=== PATIENT | female | born 1940 | race Caucasian/White ===

== ENCOUNTER 2017-06-13 05:44 | Inpatient (IN) | payer MEDICARE, OTHER ==
[~2017-06-13] VITALS: Ht 162.6 cm; Wt 70.4 kg
[2017-06-13] VITALS (26 sets, daily range): BP systolic 100–126; BP diastolic 43–79; PULSE 70–113; RESP 14–21; Ht 162.6 cm; Wt 70.4 kg
[2017-06-13 06:46] LABS: BASOPHILS % 0.4 % (0.0-2.0); EOSINOPHILS # 0.1 10^3/ul (0.0-0.5); EOSINOPHILS % 1.5 % (0.0-7.0); HEMOGLOBIN 11.6 g/dl (12.0-16.0); LYMPHOCYTES # 2.6 10^3/ul (0.8-2.9); LYMPHOCYTES % 31.1 % (15.0-51.0); MEAN CORPUSCULAR HEMOGLOBIN 28.1 pg (29.0-33.0); MEAN CORPUSCULAR HGB CONC 32.2 g/dl (32.0-37.0); MEAN CORPUSCULAR VOLUME 87.2 fl (82.0-101.0); MEAN PLATELET VOLUME 11.3 fl (7.4-10.4); MONOCYTE # 0.4 10^3/ul (0.3-0.9); MONOCYTES % 4.7 % (0.0-11.0); NEUTROPHILS % 62.1 % (39.0-77.0); PLATELET COUNT 224 10^3/UL (140-415); RED BLOOD COUNT 4.13 10^6/ul (4.20-5.40); RED CELL DISTRIBUTION WIDTH 13.4 % (11.5-14.5); WHITE BLOOD COUNT 8.2 10^3/ul (4.8-10.8)
[2017-06-13 06:59] LABS: PROTIME 13.2 Sec (12.2-14.2)
[2017-06-13 07:00] LABS: PARTIAL THROMBOPLASTIN TIME 27.2 Sec (25.0-35.0)
[2017-06-13] MEDS ORDERED: ASPIRIN 325 MG TAB ONE (07:02)
[2017-06-13] MEDS ORDERED: CLON-379 PO (07:24)
[2017-06-13] MEDS ORDERED: ISOS5TAB2 PO (07:24)
[2017-06-13] MEDS ORDERED: ATOR20TA38 PO (07:24)
[2017-06-13] MEDS ORDERED: METF1000 PO (07:24)
[2017-06-13] MEDS ORDERED: MECL-77 PO (07:24)
[2017-06-13] MEDS ORDERED: METO-429 PO (07:24)
[2017-06-13] MEDS ORDERED: LIPA1CAP45 PO (07:24)
[2017-06-13] MEDS ORDERED: GABA300C16 PO (07:24)
[2017-06-13] MEDS ORDERED: MONT10TA24 PO (07:24)
[2017-06-13] MEDS ORDERED: HEPARIN 1000 UNITS/ML 10 ML INJ ONE (07:29)
[2017-06-13] MEDS ORDERED: FENTAnyl 50 MCG/ML VIAL ONE (07:29)
[2017-06-13] MEDS ORDERED: LIDOCAINE 1% (MDV) 20 ML INJ ONE (07:29)
[2017-06-13] MEDS ORDERED: IODIXANOL LOCM 100 ML BTL ONE (07:29)
[2017-06-13] MEDS ORDERED: NITROGLYCERIN (IC) 100 MCG/ML INJ ONE (07:30)
[2017-06-13] MEDS ORDERED: MIDAZOLAM 1 MG/ML 2 ML INJ ONE (07:30)
[2017-06-13] MEDS ORDERED: VERAPAMIL 5 MG INJ ONE (07:30)
[2017-06-13 07:34] LABS: CALCIUM 9.2 mg/dl (8.4-10.2); CREATININE 0.85 mg/dl (0.44-1.00); POTASSIUM 4.1 mmol/L (3.5-5.1)
[2017-06-13] MEDS ORDERED: IBUP-1542 PO (07:58)
[2017-06-13] MEDS ORDERED: TRAM50TA2 PO (07:58)
[2017-06-13] MEDS ORDERED: LANT3I SC (07:58)
[2017-06-13] MEDS ORDERED: GLIM1TAB2 PO (07:58)
[2017-06-13] MEDS ORDERED: ACET325T38 PO (07:58)
[2017-06-13] MEDS ORDERED: OLME40TA14 PO (07:58)
[2017-06-13] MEDS ORDERED: AZIT250T6 PO (07:58)
[2017-06-13] MEDS ORDERED: ASPI1CPM8 PO (07:58)
[2017-06-13] MEDS ORDERED: TEMA30CA PO (07:58)
[2017-06-13] MEDS ORDERED: DICL50TA2 PO (07:58)
[2017-06-13] MEDS ORDERED: ESOM40CA51 PO (07:58)
[2017-06-13] MEDS ORDERED: ICOS1CAP PO (07:58)
[2017-06-13] MEDS ORDERED: MELO7.5O PO (07:58)
[2017-06-13] MEDS ORDERED: PSEU30TA38 PO (07:58)
[2017-06-13] MEDS ORDERED: UMEC62.5 IH (07:58)
[2017-06-13] MEDS ORDERED: CHOL500051 PO (07:58)
[2017-06-13] MEDS ORDERED: LEVO100T87 PO ×2 (07:58)
[2017-06-13] MEDS ORDERED: ALBU18HF INHALATION (07:58)
[2017-06-13] MEDS ORDERED: VIGA RIGHT EYE (07:58)
[2017-06-13] MEDS ORDERED: SOD CHLORIDE 0.9% 500 ML ONE (08:00)
[2017-06-13] MEDS ORDERED: BIVALIRUDIN 250MG /NS 50 ML 50 ML IVPB ONE ×2 (08:00→08:55)
[2017-06-13] MEDS ORDERED: CLOPIDOGREL 300 MG TAB ONE (08:00)
[2017-06-13] MEDS ORDERED: FUROSEMIDE 40 MG INJ ONE (08:49)
[2017-06-13] MEDS ORDERED: ONDANSETRON 4 MG INJ ONE (09:26)
[2017-06-13] MEDS ORDERED: ALBUTEROL/IPRATROPIUM (NEB) 3 ML AMP HHN STA (09:39)
[2017-06-13] MEDS ORDERED: ACETAMINOPHEN 325 MG TAB PO PRN (10:00)
[2017-06-13] MEDS ORDERED: ONDANSETRON 4 MG INJ IV PRN (10:00)
--- NOTE | 2017-06-13 10:06 | OPR ---
Date/Time of Note Date/Time of Note DATE: 06/13/17 TIME: 09:42 Operative Report Free Text/Dictation Procedure Date: 06/13/2017 Procedures Performed: 1)Left heart catheterization with selective left and right coronary angiography. 2)Balloon angioplasty of the LAD Pre-operative Diagnosis: CAD, cardiomyopathy (EF 40%) Post-operative Diagnosis:same Indications:76 yo F with a h/o new onset cardiomyopathy (EF ~40%), LV thrombus, CAD (based on echo findings), CVA without residual, DM, HTN, active smoker, who was found to have new onset cardiomyopathy and chest pain. Cardiac cath for evaluation. Description of Procedure: After informed consent, the patient was brought to the cardiac catheterization lab. The procedure site was prepped and draped in usual manner. The patient was premedicated with versed 1 mg and fentanyl 25 mcg. 2mL lidocaine was injected into the right wrist. Next using the posterior wall technique, the 6/ 5 chinese sheath was inserted into the right radial artery. Next using the JL3.5 and JR4, selective angiography of the left and right coronary arteries were obtained. The pigtail was not advanced into the ventricle due to known LV thrombus. The decision was made to proceed with PCI of the LAD due to pt's symptoms, low EF and hypokinetic (not akinetic) anterior wall on echo. A guide was advanced and engaged into the left coronary artery. After appropriate anticoagulation and antiplatelets were given, the PT2 light support angioplasty wire was advanced past the lesion. Next the proximal lesion was dilated with a 2.0 X 12 balloon with KAREN 1 flolw established. The wire was in the correct location. The mid lesion was thought to be the reason for the poor flow but multiple balloons including a 1.5 x 8, 1.2 x8, and OTW carton making machine operator 1.2 balloon would not cross. Eventually the PT2 LS was exchanged for a Mailman using the Automotive Shop Foreman OTW balloon and the lesion was dilated. Flow could not be established and the pt was starting to have desaturations/respiratory distress so the decision was made to stop the procedure. After the wire was removed however, final angiography revealed KAREN 3 flow and a diffusely disease LAD. Next all equipment was removed and hemostasis was achieved by TR band. Findings: Anatomy/Hemodynamics: Left main: normal LAD: prox subtotal occlusion with very faint antegrade flow and mostly retrograde collaterals from the RCA Circumflex: luminal irregularities Obtuse marginal:luminal irregularities RCA:diffuse 30-40% disease with focal 70% mid PDA:mild plaquing PLV:mild plaquing LV not entered due to LV thrombus Contrast used: 165 mL Fluoroscopy time: 30.3 min Medications used: Versed 1.5 Fentanyl 50 Angiomax bolus plus drip ASA 325mg plavix 600mg Equipment used: 6 chinese EBU 3.5 guide PT 2 LS and Mailman angioplasty wire 2 x 12, 1.5 x 8, 1.2 x 8, carton making machine operator OTW 1.2 No stents deployed Assessment: Angina/CAD: Attempted PCI of LAD with establishment of KAREN 3 flow but diffuse disease. Will need to discuss with cardiac surgery for options (CABG vs repeat PCI) Cardiomyopathy: EF 40% LV thrombus DM CVA Tobacco use Plan: -admit to ICU -surgical eval -ASA -hold plavix until decision is made regarding surgery -hold Xarelto -coreg 6.25mg DIEUDONNE BANDA Jun 13, 2017 10:06
--- NOTE | 2017-06-13 10:07 | CONS ---
Date/Time of Note Date/Time of Note DATE: 06/13/17 TIME: 10:06 Assessment/Plan Assessment/Plan Chief Complaint/Hosp Course Acute respiratory distress: Combination of mild CHF and COPD. Angina/CAD: Attempted PCI of LAD with establishment of KAREN 3 flow but diffuse disease. Will need to discuss with cardiac surgery for options (CABG vs repeat PCI) Cardiomyopathy: EF 40% LV thrombus: repeat echo DM CVA Tobacco use Plan: -admit to ICU -surgical eval to decide -ASA -hold plavix until decision is made regarding surgery -hold Xarelto -coreg 6.25mg -lasix given in cardiac catheterization technologist Problems: Consultation Date/Type/Reason Admit Date/Time Date of Consultation: Jun 13, 2017 Type of Consultation: Cardiology Reason for Consultation CAD Referring Provider: USHA ANDERSON DO Hx of Present Illness 76 yo F with a h/o new onset cardiomyopathy (EF ~40%), LV thrombus, CAD (based on echo findings), CVA without residual, DM, HTN, active smoker, who was found to have new onset cardiomyopathy and chest pain. Cardiac cath showed occluded LAD which was partially revascularized but unable to achieve optimal results and no stenting done at this time. Pt developed respiratory distress so the procedure was stopped. per HPI, otherwise negative Past Medical History per HPI Social History Smoking Status: Current every day smoker Exam/Review of Systems Vital Signs Vitals Vital Signs Date Time Temp Pulse Resp B/P Pulse Ox O2 Delivery O2 Flow Rate FiO2 06/13/17 06:31 97.6 85 20 117/64 99 Room Air Exam Constitutional: alert, oriented Psych: nl mood/affect Head: atraumatic, normocephalic Neck: No jvd Respiratory: crackles/rales, diminished breath sounds, wheezing, No clear to auscultation (mild crackles, + ronchi) Cardiovascular: regular rate and rhythm, No edema, No systolic murmur Gastrointestinal: non-tender, soft Neurological: nl mental status, nl speech Results Result Diagram: 06/13/17 0640 06/13/17 0640 Results 24 hrs Laboratory Tests Test 06/13/17 06:40 White Blood Count 8.2 Red Blood Count 4.13 L Hemoglobin 11.6 L Hematocrit 36.0 L Mean Corpuscular Volume 87.2 Mean Corpuscular Hemoglobin 28.1 L Mean Corpuscular Hemoglobin Concent 32.2 Red Cell Distribution Width 13.4 Platelet Count 224 Mean Platelet Volume 11.3 H Neutrophils % 62.1 Lymphocytes % 31.1 Monocytes % 4.7 Eosinophils % 1.5 Basophils % 0.4 Nucleated Red Blood Cells % 0.0 Neutrophils # (Manual) 5.1 Lymphocytes # 2.6 Monocytes # 0.4 Eosinophils # 0.1 Basophils # 0.0 Nucleated Red Blood Cells # 0.0 Prothrombin Time 13.2 Prothrombin Time Ratio 1.0 INR International Normalized Ratio 1.00 Activated Partial Thromboplast Time 27.2 Sodium Level 150 H Potassium Level 4.1 Chloride Level 112 H Carbon Dioxide Level 23 Anion Gap 19 H Blood Urea Nitrogen 17 Creatinine 0.85 Glucose Level 101 Calcium Level 9.2 DIEUDONNE BANDA Jun 13, 2017 10:07
--- NOTE | 2017-06-13 11:00 | RADRPT ---
PROCEDURE: XR Chest 1 View. CLINICAL INDICATION: Chest pain, status post heart catheterization. TECHNIQUE: AP view of the chest was obtained. COMPARISON: None. FINDINGS: The heart size is within normal limits. Calcified atherosclerosis is seen in the aorta. Elevated r ight hemidiaphragm is identified. Atelectasis is noted at the left lung base. Diffuse mild interst itial prominence is seen in both lungs. No consolidations are identified. No pneumothorax is seen. Osseous structures are intact. IMPRESSION: Calcified atherosclerosis in the aorta. Elevated right hemidiaphragm. Diffuse mild interstitial prominence in both lungs. Interstitial prominence could be chronic. Atelectasis at the left lung base. RPTAT: AA .Emre Hatch MD, MD Date Time Electronically viewed and signed by .Emre Hatch MD, on 06/13/2017 10:21 .P/
[2017-06-13] MEDS ORDERED: morphine 2 MG INJ ONE (11:09)
[2017-06-13] MEDS ORDERED: morphine 2 MG INJ IV ONE (11:30)
[2017-06-13] MEDS ORDERED: ALBUTEROL/IPRATROPIUM (NEB) 3 ML AMP HHN PRN (12:30)
--- NOTE | 2017-06-13 13:23 | RADRPT ---
Vent Rate: 80 bpm RR Interval: 0 msec KS Interval: 158 msec QRS Duration: 72 msec QT Interval: 376 msec QTC Interval: 433 msec P-R-T Surprise: 76 - 70 - 51 degrees Normal sinus rhythm Biatrial enlargement Anteroseptal infarct , age undetermined Abnormal ECG Electronically Signed By: Cesario Shafer [id number]
[2017-06-13] MEDS ORDERED: CEFAZOLIN 2 GM/50 ML (PMX) 50 ML IVPB ONE (13:30)
--- NOTE | 2017-06-13 13:30 | CONS ---
Date/Time of Note Date/Time of Note DATE: 06/13/17 TIME: 13:23 Assessment/Plan Assessment/Plan Additional Assessment/Plan 76 year old female with ischemic cardiomyopathy and 2 vessel CAD with LV thrombus who will need CABG. I will check carotid and bedside spirometry. I explained to patient and sister the benefits, risks and alternatives of surgery. I explained via a nurse who translated the risks are but not limited to bleeding, infection, stroke, [place], renal and respiratory failure and . They understand and consent. Will schedule for Sunday. Consultation Date/Type/Reason Admit Date/Time Date of Consultation: Jun 13, 2017 Reason for Consultation evaluate for CABG Hx of Present Illness 76 year old smoker who has been complaining of SBO and chest pressure had a positive stress test with anterior wall ischemia. Echo shows apical hypokinesis as well as an LV thrombus. Cath today showed an occluded LAD and 80% mid RCA lesion. We are asked to see regarding CABG Constitutional: No chills, No diaphoresis, No disoriented, No febrile, No improved, No no complaints, No other, No poor po, No requiring IVF, No requiring O2 Eyes: No discharge, No no complaints, No other, No pain, No redness, No visual change ENT: No bleeding, No congestion, No discharge, No dysphagia, No no complaints, No other, No pain, No sore throat Respiratory: shortness of breath Cardiovascular: chest pain Gastrointestinal: No blood, No constipation, No decreased appetite, No diarrhea , No flatus, No nausea, No no complaints, No other, No pain, No passing stool, No vomiting Genitourinary: No bleeding, No discharge, No dysuria, No flank pain, No hematuria, No no complaints, No other Musculoskeletal: No back pain, No bone/joint pain, No neck pain, No no complaints, No other, No restricted range of motion, No swelling Skin: No bruising, No erythema, No laceration, No no complaints, No other, No pruritis, No rash, No skin lesions Neurologic: No confusion, No dizziness, No focal-weakness, No headache, No no complaints, No other, No seizure, No syncope Endocrine: No dry skin, No no complaints, No other, No polydypsia, No polyuria , No temp intolerance Lymphatic: No adenopathy, No lymphadema, No no complaints, No other, No tender nodes Psychological: No anxiety, No confusion, No depression, No nl mood/affect, No no complaints, No other, No suicidal Immunologic: No immunodeficiency, No no complaints, No other, No pruritis, No rhinitis, No urticaria Past Medical History Medical History: cancer, coronary artery disease, hypertension Past Surgical History hysterectomy Family History Significant Family History: no pertinent family hx Social History Alcohol Use: none Smoking Status: Current every day smoker Drug Use: none Exam/Review of Systems Vital Signs Vitals Vital Signs Date Time Temp Pulse Resp B/P Pulse Ox O2 Delivery O2 Flow Rate FiO2 06/13/17 12:47 Nasal Cannula 2.0 06/13/17 12:00 97.7 83 14 110/43 94 Exam Constitutional: No alert, No distress, No frail, No non-verbal, No obese, No oriented, No other, No well developed Psych: No anxiety, No confusion, No depression, No nl mood/affect, No no complaints, No other, No suicidal Head: No atraumatic, No hematomas, No lacerations, No normocephalic, No other Eyes: No EOMI, No PERRL, No fundi, disc, No icteric, No nl conjunctiva, No nl lids, No nl sclera, No other ENMT: No intubated, No mucosa pink and moist, No nl external ears & nose, No nl lips & teeth, No nl nasal mucosa & septum, No other, No tympanic membranes Neck: No bruits, No jvd, No masses, No non-tender, No nuchal rigidity, No other , No supple, No thyromegaly Respiratory: No clear to auscultation, No congested cough, No crackles/rales, No diminished breath sounds, No intercostal retraction, No labored breathing, No normal air movement, No other, No respirations, No tactile fremitus, No wheezing Cardiovascular: No S3, No S4, No bruits, No diastolic murmur, No edema, No gallop, No irregular rhythm, No jugular venous distention (JVD), No murmurs/ extra sounds, No nl pulses, No other, No regular rate and rhythm, No rub, No systolic murmur Gastrointestinal: No ascites, No bowel sounds, No distended, No firm, No hepatomegaly, No mass, No nl liver, spleen, No non-tender, No other, No rebound or guarding, No soft, No splenomegaly, No surgical scars, No tender Genitourinary - Female: No CMT, No CVA tenderness, No nl adnexae, No nl external genitalia, No other, No uterus Musculoskeletal: No joint tenderness, No muscle tone, No muscle weakness, No nl extremities to inspection, No nl gait and stance, No other, No range of motion, No spine non-tender, No swelling Extremities: No calf tenderness, No clubbing, No cyanosis, No edema, No normal pulses, No other, No palpable cord, No pitting pedal edema, No tenderness Neurological: No PLATE CONDITIONER II-XII intact, No DTR's symmetric, No confused, No focal weakness, No lethargic, No nl mental status, No nl speech, No nl strength, No numbness, No other, No reflexes, No unresponsive Skin: No diaphoresis, No ecchymosis, No laceration, No nl turgor, No other, No puncture, No rash or lesions Lymph: No enlarged, No nl lymph nodes, No nontender, No other Results Result Diagram: 06/13/17 0640 06/13/17 0640 Results 24 hrs Laboratory Tests Test 06/13/17 06:40 White Blood Count 8.2 Red Blood Count 4.13 L Hemoglobin 11.6 L Hematocrit 36.0 L Mean Corpuscular Volume 87.2 Mean Corpuscular Hemoglobin 28.1 L Mean Corpuscular Hemoglobin Concent 32.2 Red Cell Distribution Width 13.4 Platelet Count 224 Mean Platelet Volume 11.3 H Neutrophils % 62.1 Lymphocytes % 31.1 Monocytes % 4.7 Eosinophils % 1.5 Basophils % 0.4 Nucleated Red Blood Cells % 0.0 Neutrophils # (Manual) 5.1 Lymphocytes # 2.6 Monocytes # 0.4 Eosinophils # 0.1 Basophils # 0.0 Nucleated Red Blood Cells # 0.0 Prothrombin Time 13.2 Prothrombin Time Ratio 1.0 INR International Normalized Ratio 1.00 Activated Partial Thromboplast Time 27.2 Sodium Level 150 H Potassium Level 4.1 Chloride Level 112 H Carbon Dioxide Level 23 Anion Gap 19 H Blood Urea Nitrogen 17 Creatinine 0.85 Glucose Level 101 Calcium Level 9.2 Medications Medications Current Medications Acetaminophen (Tylenol Tab) 650 mg Q4H PRN PO NON-CARDIAC PAIN LEVEL (1-3); Start 06/13/17 at 10:00 Ondansetron HCl 4 mg 4 mg Q4H PRN IV NAUSEA AND/OR VOMITING; Start 06/13/17 at 10:00 Cefazolin Sodium/ Dextrose (Ancef 2 Gm/50 ml (Pmx)) 50 ml @ 100 mls/hr PRE-OP ONCE IVPB ; Start 06/13/17 at 13:30; Stop 06/13/17 at 13:59 AJAY MULLINS MD Jun 13, 2017 13:30
--- NOTE | 2017-06-13 14:40 | RADRPT ---
AMENDMENT: 06/13/2017 3:42:39 PM Kaleb Norris M.D Results were discussed with Mckenna Obando) at 06/13/2017 3:42:36 PM PROCEDURE: US Carotids. CLINICAL INDICATION: Syncope. Preoperative exam for CABG. TECHNIQUE: Multiple sonographic of the carotid bifurcation region and vertebral arteries were obta ined utilizing bolanos scale, duplex and color-flow imaging. The images were reviewed on a PACS worksta tion. COMPARISON: No prior studies are available for comparison. FINDINGS: Evaluation of the right carotid bifurcation region reveals mild to moderate calcific atherosclerotic disease. The left internal carotid artery is occluded at the midportion. Minimal flow in the proximal left i nternal carotid artery is seen. There is antegrade flow within the vertebral arteries bilaterally. RIGHT CAROTID MEASUREMENTS: Common Carotid Onladh57.9 (cm/sec) Internal Carotid Artery - vlrdhdwa64.8 (cm/sec) Internal Carotid Artery - mhc054.5 (cm/sec) Internal Carotid Artery - bugemj53.3 (cm/sec) Internal Carotid/Common Carotid1.5 LEFT CAROTID MEASUREMENTS: Common Carotid Rfdmxs08.4 (cm/sec) Internal Carotid Artery - proximal0 (cm/sec) Internal Carotid Artery - mid0 (cm/sec) Internal Carotid Artery - distal0 (cm/sec) Internal Carotid/Common Carotid0 IMPRESSION: 1. Occlusion of the left internal carotid artery in the midportion. 2. No hemodynamically significant stenosis in the right carotid bifurcation and internal carotid ar jacob. RPTAT: HPNM Physician Neva Date Time Electronically viewed and signed by Physician Neva on 06/13/2017 15:42 /
[2017-06-13 14:58] LABS: BASOPHILS % 0.2 % (0.0-2.0); EOSINOPHILS % 0.3 % (0.0-7.0); HEMATOCRIT 37.3 % (37.0-47.0); HEMOGLOBIN 11.9 g/dl (12.0-16.0); LYMPHOCYTES # 1.5 10^3/ul (0.8-2.9); LYMPHOCYTES % 15.7 % (15.0-51.0); MEAN CORPUSCULAR HEMOGLOBIN 27.7 pg (29.0-33.0); MEAN CORPUSCULAR HGB CONC 31.9 g/dl (32.0-37.0); MEAN CORPUSCULAR VOLUME 86.7 fl (82.0-101.0); MEAN PLATELET VOLUME 11.6 fl (7.4-10.4); MONOCYTE # 0.3 10^3/ul (0.3-0.9); MONOCYTES % 3.1 % (0.0-11.0); NEUTROPHILS % 80.4 % (39.0-77.0); PLATELET COUNT 219 10^3/UL (140-415); RED CELL DISTRIBUTION WIDTH 13.7 % (11.5-14.5); WHITE BLOOD COUNT 9.8 10^3/ul (4.8-10.8)
[2017-06-13] MEDS ORDERED: MECLIZINE 25 MG TAB PO PRN (16:30)
[2017-06-13] MEDS ORDERED: PSEUDOEPHEDRINE 30 MG TAB PO PRN (16:30)
[2017-06-13] MEDS ORDERED: traMADol 50 MG TAB PO PRN (16:30)
[2017-06-13] MEDS: ALBUTEROL 18 GM INHALER INH SCH ×2 (16:30→20:00)
[2017-06-13] MEDS ORDERED: GLUCOSE GEL 15 GRAM TUBE PO PRN ×2 (17:00)
[2017-06-13] MEDS ORDERED: DEXTROSE 50% 50 ML SYRINGE IV PRN ×2 (17:00)
[2017-06-13] MEDS ORDERED: GLUCAGON 1 MG INJ IM PRN (17:00)
[2017-06-13] MEDS ORDERED: GLUCOSE GEL 15 GRAM TUBE BUCCAL PRN (17:00)
[2017-06-13] MEDS ORDERED: metFORMIN 500 MG TAB PO SCH (17:35)
[2017-06-13] MEDS: INSULIN ASPART [NOVOLOG] 3 ML PEN SC SCH ×2 (17:35→21:00)
[2017-06-13] MEDS: GLIMEPIRIDE 2 MG TAB PO SCH (17:59)
--- NOTE | 2017-06-13 19:04 | HP ---
DATE OF ADMISSION: 06/13/2017 CHIEF COMPLAINT: Chest pain. HISTORY OF PRESENT ILLNESS: This is a 76-year-old female with new onset of cardiomyopathy, ejection fraction 40 percent, history of left ventricular thrombus, coronary artery disease, history of CVA without residual deficit, hypertension, diabetes, smoker, who was found to have new onset cardiomyopathy and chest pain. The patient's cardiac cath showed occluded LAD that was able to be partially revascularized, but no optimal result and no stenting was done. The patient was, therefore, transferred to the intensive care unit for evaluation possibly of CABG. Upon my evaluation, patient at this time is currently stable. Denies any fevers, chills, nausea, vomiting. PAST MEDICAL HISTORY: History of coronary artery disease, angina, cardiomyopathy, diabetes, prior CVA. PAST SURGICAL HISTORY: None. ALLERGIES: NONE. SOCIAL HISTORY: Positive for smoking. MEDICATIONS: Reviewed and reconciled. REVIEW OF SYSTEMS: Fourteen point review of systems conducted. Pertinent positives in HPI, otherwise negative. PHYSICAL EXAMINATION: VITAL SIGNS: BP is 114/54, respirations 18, pulse 97, temp 98.6. HEENT: Head is normocephalic. NECK: Supple. HEART: Regular rate. LUNGS: Diminished breath sounds at the base. ABDOMEN: Soft, nontender to palpation. No rebound or guarding. EXTREMITIES: Negative for clubbing, cyanosis. No edema. DERMATOLOGIC: Clean. No rashes. MUSCULOSKELETAL: No joint effusion. NEUROLOGIC: No change in exam. LABORATORY DATA: White count 9.8, hemoglobin 9.9, hematocrit 27.3, platelet count 319. Sodium 150, potassium 4.1, BUN 19, creatinine 0.85. ASSESSMENT AND PLAN: This is a 76-year-old female who presents with: 1. Cardiomyopathy, coronary artery disease. The patient is status post cardiac cath with percutaneous coronary intervention to the left anterior descending. The patient has multivessel disease. A CT surgery consult was placed with Dr. Obando for evaluation. 2. Acute respiratory distress. The etiology is likely secondary to congestive heart failure and chronic obstructive pulmonary disease. Plan is to give the patient nebulizers p.r.n. Will place a pulmonary consult for evaluation. Monitor closely. 3. Hypernatremia. Patient has a free water deficit of approximately 1 liter. Will encourage free water intake. 4. Diabetes. Continue Accu-Chek and sliding scale. 5. History of cerebrovascular accident. Continue medical management. 6. Continued tobacco abuse. 7. Left ventricular thrombus. Continue medical management. Follow up repeat echo. 8. Gastrointestinal and deep venous thrombosis prophylaxis. Continue PPI and sequential compression devices. Dictated By: Chad Apodaca DO /armen/humberto /Document#: [id number]
[2017-06-13 19:56] LABS: CALCIUM 9.4 mg/dl (8.4-10.2); CREATININE 0.85 mg/dl (0.44-1.00); POTASSIUM 4.1 mmol/L (3.5-5.1)
[2017-06-13] MEDS: DIPYRIDAMOLE/ASPIRIN (SR) CAP PO SCH (21:16)
[2017-06-13] MEDS: MOXIFLOXACIN 0.5% 3 ML OPH RIGHT EYE SCH (21:16)
[2017-06-13] MEDS: ISOSORBIDE DINITRATE 5 MG TAB PO SCH (21:17)
[2017-06-13] MEDS: morphine 2 MG INJ IV PRN (21:18)
[2017-06-13] MEDS: METOPROLOL 50 MG TAB PO SCH (21:18)
[2017-06-13] MEDS: ATORVASTATIN 20 MG TAB PO SCH (21:18)
[2017-06-13] MEDS: GABAPENTIN 300 MG CAP PO SCH (21:18)
[2017-06-14] VITALS (22 sets, daily range): BP systolic 55–129; BP diastolic 36–70; PULSE 75–92; RESP 14–26
[2017-06-14] MEDS: ALBUTEROL 18 GM INHALER INH SCH ×4 (01:30→20:00)
[2017-06-14] MEDS: ACCU-CHEK XX SCH (01:30)
[2017-06-14] MEDS: GLIMEPIRIDE 2 MG TAB PO SCH ×2 (08:42→18:20)
[2017-06-14] MEDS: ISOSORBIDE DINITRATE 5 MG TAB PO SCH ×3 (08:44→21:48)
[2017-06-14] MEDS: MONTELUKAST 10 MG TAB PO SCH (08:45)
[2017-06-14] MEDS: METOPROLOL 50 MG TAB PO SCH (08:45)
[2017-06-14] MEDS: AZITHROMYCIN 250 MG TAB PO SCH (08:46)
[2017-06-14] MEDS: MOXIFLOXACIN 0.5% 3 ML OPH RIGHT EYE SCH ×3 (08:48→21:48)
[2017-06-14] MEDS: INSULIN ASPART [NOVOLOG] 3 ML PEN SC SCH ×4 (08:48→21:00)
[2017-06-14] MEDS: DIPYRIDAMOLE/ASPIRIN (SR) CAP PO SCH ×2 (08:51→21:47)
[2017-06-14] MEDS ORDERED: IODIXANOL LOCM 100 ML BTL ONE (09:26)
[2017-06-14] MEDS ORDERED: SOD CHLORIDE 0.9% 100 ML ONE (09:26)
--- NOTE | 2017-06-14 10:02 | RADRPT ---
Echocardiogram Report Patient Name: MEI VALLES Gender: Female Date: 1940 Study Date: 13-Jun-2017 Marketing Project Manager: Marlon Restrepo RDCS Location: 106 Ref. Physician: AJAY MULLINS Quality: Adequate Procedures: Transthoracic echocardiogram with complete 2D, M-Mode, and doppler examination. Indications: LV Thrombus. 2D/M Mode Doppler Measurement Value Normal Ranges Measurement Value Normal Ranges LVIDd 2D 5.2 3.5 - 5.6 cm AV Peak Xander 1.6 m/sec LVIDs 2D 3.1 2.1 - 4.1 cm AV Peak PG 10.1 mmHg LVPWd 2D 0.9 0.6 - 1.1 cm LVOT Peak Xander 0.8 m/sec IVSd 2D 1.0 0.6 - 1.1 cm LVOT Peak PG 2.5 mmHg AoR Diam 2D 2.8 2.0 - 3.7 cm MV E Peak Xander 0.8 m/sec EDV 2D 129.4 cm3 MV A Peak Xander 1.1 m/sec ESV 2D 30.3 cm3 MV E/A 0.7 LA Dimen 2D 2.9 2.3 - 4.0 cm MV Decel Time 102 msec MV Decel [place] 7 MV E/A 0.7 TR Peak Xander 2.7 m/sec TR Peak PG 28.4 mmHg RVSP 31.0 mmHg Findings Left Ventricle: Normal left ventricular cavity size. Normal left ventricular wall thickness. Moderate left ventricular systolic dysfunction. Ejection fraction is visually estimated at 40 %. Tissue Doppler/Mitral Doppler indices are consistent with impaired relaxation (Stage I diastolic dysfunction). The previously seen apical thrombus (on outpatient echo) is not well characterized here but cannot be ruled out. Definity (contrast) study would be useful for evaluation but is not available. Resting Segmental Wall Motion Analysis: Dyskinesis/aneurysm of the apex. hypokinesis of the distal septum and anterior wall. Right Ventricle: Normal right ventricular size. Normal right ventricular systolic function. Left Atrium: There is mild enlargement of left atrium. Right Atrium: The right atrium is normal in size. Mitral Valve: Mitral valve leaflets appear mildly thickened. Mild mitral annular calcification. Mild mitral valve regurgitation. Aortic Valve: No significant aortic stenosis or insufficiency. Aortic cusps appear mildly calcified. Tricuspid Valve: Normal appearance of the tricuspid valve. Estimated peak PA systolic pressure 31 mmHg. There is trace tricuspid regurgitation. Pulmonic Valve: Normal pulmonic valve appearance. Pericardium: Normal pericardium with no significant pericardial effusion. Aorta: Normal aortic root. IVC: Normal size and normal respiratory collapse consistent with normal right atrial pressure. Conclusions 1.Normal left ventricular cavity size. Normal left ventricular wall thickness. Moderate left ventricular systolic dysfunction. Ejection fraction is visually estimated at 40 %. Tissue Doppler/Mitral Doppler indices are consistent with impaired relaxation (Stage I diastolic dysfunction). 2.The previously seen apical thrombus (on outpatient echo) is not well characterized here but cannot be ruled out. Definity (contrast) study would be useful for evaluation but is not available. 3.Dyskinesis/aneurysm of the apex. Hypokinesis of the distal septum and anterior wall. 4.Mild mitral valve regurgitation. 5.Estimated peak PA systolic pressure 31 mmHg based on RA pressure of 3 mmHg. Electronically Signed By: Jarrod George 14-Jun-2017 10:01:12 -0900 Patient Name: MEI VALLES Study Date: 13-Jun-2017 [id number]
--- NOTE | 2017-06-14 10:19 | CONS ---
Date/Time of Note Date/Time of Note DATE: 06/14/17 TIME: 10:09 Assessment/Plan Assessment/Plan Chief Complaint/Hosp Course Acute respiratory distress: From sedation and severe COPD. Now resolved Angina/CAD: Attempted PCI of LAD with establishment of KAREN 3 flow but diffuse disease. Plan for CABG. If risk is too high, PCI is still an option but would likely require stenting of most of LAD Cardiomyopathy: EF 40% LV thrombus: seen on echo in clinic one week prior. Not seen well on echo here DM CVA PVD: left carotid occlusion, chronic Severe COPD Tobacco use -CABG tomorrow am -if CABG is delayed, start heparin for LV thrombus, otherwise assisted can take Xarelto for ~3 months unless removed during surgery -ASA (aggrenox ok for now) -lipitor -hold plavix -hold Xarelto -coreg 6.25mg -d/c metformin as will have another contrast study today -change clonidine to PRN Problems: Consultation Date/Type/Reason Admit Date/Time Jun 13, 2017 at 19:48 Initial Consult Date 06/13/17 Type of Consultation: Cardiology Referring Provider: USHA ANDERSON DO 24 HR Interval Summary Free Text/Dictation Evaluated by Dr. Obando and plan is for CABG. Spirometry shows severe COPD Ultrasound shows occluded left carotid which is chronic per pt No SOB or chest pain today Exam/Review of Systems Vital Signs Vitals Vital Signs Date Time Temp Pulse Resp B/P Pulse Ox O2 Delivery O2 Flow Rate FiO2 06/14/17 10:00 81 19 103/59 98 Nasal Cannula 2.0 06/14/17 08:00 97.6 06/14/17 02:22 27 Intake and Output 06/13/17 06/13/17 06/14/17 15:00 23:00 07:00 Intake Total 340 ml 230 ml 20 ml Output Total 630 ml 690 ml 270 ml Balance -290 ml -460 ml -250 ml Exam Constitutional: alert, oriented Psych: no complaints Head: atraumatic, normocephalic Neck: No jvd Respiratory: No clear to auscultation (mild ronchi) Cardiovascular: regular rate and rhythm, No edema, No systolic murmur Gastrointestinal: non-tender, soft, No distended Neurological: nl mental status, nl speech Results Result Diagram: 06/13/17 1436 06/13/17 1920 Results 24 hrs Laboratory Tests Test 06/13/17 14:36 06/13/17 17:50 06/13/17 19:20 06/13/17 21:25 White Blood Count 9.8 Red Blood Count 4.30 Hemoglobin 11.9 L Hematocrit 37.3 Mean Corpuscular Volume 86.7 Mean Corpuscular Hemoglobin 27.7 L Mean Corpuscular Hemoglobin Concent 31.9 L Red Cell Distribution Width 13.7 Platelet Count 219 Mean Platelet Volume 11.6 H Neutrophils % 80.4 H Lymphocytes % 15.7 Monocytes % 3.1 Eosinophils % 0.3 Basophils % 0.2 Nucleated Red Blood Cells % 0.0 Neutrophils # (Manual) 7.9 H Lymphocytes # 1.5 Monocytes # 0.3 Eosinophils # 0.0 Basophils # 0.0 Nucleated Red Blood Cells # 0.0 Bedside Glucose 105 170 Sodium Level 143 Potassium Level 4.1 Chloride Level 103 Carbon Dioxide Level 24 Anion Gap 20 H Blood Urea Nitrogen 16 Creatinine 0.85 Glucose Level 181 Calcium Level 9.4 Test 06/14/17 01:27 06/14/17 08:13 Bedside Glucose 134 139 Medications Medications Current Medications Acetaminophen (Tylenol Tab) 650 mg Q4H PRN PO NON-CARDIAC PAIN LEVEL (1-3); Start 06/13/17 at 10:00 Ondansetron HCl 4 mg 4 mg Q4H PRN IV NAUSEA AND/OR VOMITING; Start 06/13/17 at 10:00 Cefazolin Sodium/ Dextrose (Ancef 2 Gm/50 ml (Pmx)) 50 ml @ 100 mls/hr ONCE ONCE IVPB ; Start 06/15/17 at 04:30; Stop 06/15/17 at 04:59 Dipyridamole/ Aspirin (Aggrenox) 1 cap BID PO Last administered on 06/14/17 08 :51; Admin Dose 1 CAP; Start 06/13/17 at 21:00 Atorvastatin Calcium (Lipitor) 20 mg QHS PO Last administered on 06/13/17 21: 18; Admin Dose 20 MG; Start 06/13/17 at 21:00 Azithromycin (Zithromax) 250 mg DAILY PO Last administered on 06/14/17 08:46; Admin Dose 250 MG; Start 06/14/17 at 09:00 Clonidine (Catapres) 0.1 mg Q8 PO Last administered on 06/14/17 05:04; Admin Dose 0.1 MG; Start 06/13/17 at 22:00 Gabapentin (Neurontin) 300 mg QHS PO Last administered on 06/13/17 21:18; Admin Dose 300 MG; Start 06/13/17 at 21:00 Isosorbide Dinitrate (Isordil) 5 mg TID PO Last administered on 06/14/17 08:44 ; Admin Dose 5 MG; Start 06/13/17 at 21:00 Meclizine HCl (Antivert) 25 mg Q8H PRN PO DIZZINESS Last administered on 21:17; Admin Dose 25 MG; Start 06/13/17 at 16:30 Montelukast Sodium (Singulair) 10 mg DAILY PO Last administered on 06/14/17 08 :45; Admin Dose 10 MG; Start 06/14/17 at 09:00 Moxifloxacin HCl (Vigamox) 1 drop TID RIGHT EYE Last administered on 06/13/17 21:16; Admin Dose 1 DROP; Start 06/13/17 at 21:00 Pseudoephedrine HCl (Sudogest) 30 mg Q6 PRN PO CONGESTION; Start 06/13/17 at 16 :30 Tramadol HCl (Ultram) 50 mg Q6 PRN PO PAIN; Start 06/13/17 at 16:30 Diagnostic Test (Pha) (Accu-Chek) 1 ea 02 XX Last administered on 06/14/17 01: 30; Admin Dose 1 EA; Start 06/14/17 at 02:00 Miscellaneous Information 1 ea NOTE XX ; Start 06/13/17 at 17:00 Glucose (Glutose) 15 gm Q15M PRN PO DECREASED GLUCOSE; Start 06/13/17 at 17:00 Glucose (Glutose) 22.5 gm Q15M PRN PO DECREASED GLUCOSE; Start 06/13/17 at 17: 00 Dextrose (D50w Syringe) 25 ml Q15M PRN IV DECREASED GLUCOSE; Start 06/13/17 at 17:00 Dextrose (D50w Syringe) 50 ml Q15M PRN IV DECREASED GLUCOSE; Start 06/13/17 at 17:00 Glucagon (Glucagen) 1 mg Q15M PRN IM DECREASED GLUCOSE; Start 06/13/17 at 17:00 Glucose (Glutose) 15 gm Q15M PRN BUCCAL DECREASED GLUCOSE; Start 06/13/17 at 17 :00 Morphine Sulfate (morphine) 2 mg Q4H PRN IV PAIN LEVEL 4-6 Last administered on 06/13/17t 21:18; Admin Dose 2 MG; Start 06/13/17 at 18:00 Carvedilol (Coreg) 6.25 mg BID PO ; Start 06/14/17 at 21:00 DIEUDONNE BANDA Jun 14, 2017 10:19
--- NOTE | 2017-06-14 10:53 | RADRPT ---
PROCEDURE: CTA Neck. CLINICAL INDICATION: Carotid stenosis TECHNIQUE: The study was performed utilizing a multidetector CT scanner. Thin cut axial sections w ere obtained through the neck with the use of 100 cc of Isovue 370 nonionic intravenous contrast mat erial. Coronal and sagittal maximal intensity projection reformations were obtained. Additional 3D volumetric renderings were created. The images were reviewed on a PACS workstation. The total CTDI vol is 70/21 mGy and the DLP is 631 mGy-cm. One or more of the following dose reduction techniques w ere used: Automated exposure control, Adjustment of the mA and/or kV according to patient size, and/ or use of iterative reconstruction technique. COMPARISON: Correlation carotid ultrasound yesterday. FINDINGS: Mild to moderate stenosis of the mid to distal right common carotid artery. No significant right pr oximal internal carotid artery stenosis. There is moderate stenosis of the distal left common carot id artery with subsequent complete occlusion of the left internal carotid artery beginning from the origin. 14 x 20 mm air-filled structure right posterior lateral to the trachea at the level of the t horacic inlet. IMPRESSION: Moderate stenosis of the distal left common carotid artery with subsequent complete occlusion of the left internal carotid artery beginning from the origin. Mild to moderate stenosis of the mid to distal right common carotid artery. No significant right proximal internal carotid artery stenosis. 14 x 20 mm air-filled structure right posterior lateral to the trachea at the level of the thoracic inlet is most compatible with a tracheal diverticulum. RPTAT: AA .Latrell Peck MD, MD Date Time Electronically viewed and signed by .Latrell Peck MD, MD on 06/14/2017 10:53 .T/
--- NOTE | 2017-06-14 11:02 | PN ---
DATE: 06/14/2017 SUBJECTIVE DATA: The patient is currently stable in the intensive care unit. No acute events overnight. No fevers, chills, nausea, vomiting. No shortness of breath. OBJECTIVE DATA: VITAL SIGNS: Blood pressure is 113/50, respirations 16, pulse temperature 98.9. HEENT: Head is normocephalic. NECK: Supple. HEART: Regular rate. LUNGS: Diminished breath sounds at the base. ABDOMEN: Soft, nontender to palpation. No rebound or guarding. EXTREMITIES: Negative for clubbing, cyanosis. No edema. DERMATOLOGIC: Clean. No rashes. MUSCULOSKELETAL: No joint effusion. NEUROLOGIC: Unchanged exam. MEDICATIONS: Reviewed. LABORATORY AND DIAGNOSTIC DATA: From 06/13, shows sodium 143, potassium 4.1, BUN 16, creatinine 0.85. White count 9.8, hemoglobin 9.9, hematocrit 37.3, platelet count 219,000. ASSESSMENT AND PLAN: 1. End-stage cardiomyopathy, coronary artery disease. The patient is status post cardiac cath which showed multivessel disease. The patient is scheduled for CABG two vessel this Sunday. Otherwise continue current medical management. Follow up with Cardiology. 2. Acute respiratory distress. The etiology is likely secondary to COPD exacerbation. Continue nebulizer therapy. Will place a pulmonary consult for evaluation. 3. Hyponatremia, improved. Continue current free water intake. 4. Diabetes. Continue Accu-Cheks and sliding scale. 5. History of cerebrovascular accident. Continue medical management. 6. Left ventricular thrombus. Will follow up repeat echo. Follow up with Cardiology. 7. Gastrointestinal and deep venous thrombosis prophylaxis. Continue PPI and devices. 8. History of tobacco abuse. Dictated By: Chad Apodaca DO /armen/[email or web address] /Document#: [id number]
[2017-06-14] MEDS: morphine 2 MG INJ IV PRN ×2 (11:43→21:48)
--- NOTE | 2017-06-14 14:02 | CONS ---
DATE OF ADMISSION: 06/13/2017 DATE OF CONSULTATION: 06/14/2017 REASON FOR CONSULTATION: Was this shortness of breath. HISTORY OF PRESENT ILLNESS: This is a 76-year-old lady with extensive ongoing tobacco history admitted at 06/14/2017 for evaluation of chest pain. Found to have multivessel coronary artery disease requiring revascularization if possible. Preoperative pulmonary function tests were performed demonstrated severe obstructive lung disease consistent with her extensive ongoing tobacco history. PAST MEDICAL HISTORY: 1. Cardiovascular disease with prior intervention to LAD. 2. Advanced severe COPD. 3. Diabetes mellitus. 4. LV thrombus. MEDICATION: Medications per chart. ALLERGIES: ALLERGIES ARE NONE. SOCIAL HISTORY: Positive tobacco history. No alcohol history or drug use. FAMILY HISTORY: Noncontributory. REVIEW OF SYSTEMS: 12-point review of systems as noted. PHYSICAL EXAMINATION: GENERAL APPEARANCE: Well-nourished, well-developed lady talking in full and complete sentences. VITAL SIGNS: Currently afebrile. Pulse is 80, blood pressure 100/59, O2 sat 98 percent on FiO2 of 2 L. NECK: Supple. No JVD. No lymphadenopathy. HEART: S1, S2. No added sounds or murmurs. CHEST: Diminished air entry bilaterally. ABDOMEN: Soft, nontender. No guarding or rebound. EXTREMITIES: No clubbing, cyanosis or edema. NEUROLOGICALLY: Generalized weakness. LABORATORY: White 9.8, hemoglobin 11.9. BUN 15, creatinine 0.85. INR was 1. Chest x-ray was reviewed, shows no infiltrates or effusions. CT neck shows moderate stenosis, left distal common carotid artery. Complete occlusion of left internal carotid artery. IMPRESSION AND PLAN: 1. Severe chronic obstructive pulmonary disease with coronary artery disease. 2. Significant carotid stenosis. 3. History of cardiomyopathy. PLAN: 1. Continue supplemental O2 as needed. 2. Advised smoking cessation. 3. Bronchodilators preoperatively. 4. Vascular and cardiothoracic surgery recommendations regarding carotid stenosis. The patient is high risk for cardiothoracic surgery given her underlying severe COPD. However, if she required intubation and mechanical ventilation, she should hopefully be safely extubated. Dictated By: Clinton Verde MD /[email or web address]/[email or web address] /Document#: [id number]
--- NOTE | 2017-06-14 17:10 | RADRPT ---
Vent Rate: 83 bpm RR Interval: 0 msec NE Interval: 150 msec QRS Duration: 82 msec QT Interval: 378 msec QTC Interval: 444 msec P-R-T [place]: 69 - 57 - 146 degrees Sinus rhythm with premature supraventricular complexes Anteroseptal infarct , age undetermined T wave abnormality, consider lateral ischemia Abnormal ECG Electronically Signed By: Cesario Shafer [id number]
[2017-06-14] MEDS: GABAPENTIN 300 MG CAP PO SCH (21:47)
[2017-06-14] MEDS: ATORVASTATIN 20 MG TAB PO SCH (21:49)
[2017-06-15] VITALS (18 sets, daily range): BP systolic 103–133; BP diastolic 52–86; PULSE 81–150; RESP 13–22
[2017-06-15] MEDS: ACCU-CHEK XX SCH (02:00)
[2017-06-15] MEDS ORDERED: CEFAZOLIN 2 GM/50 ML (PMX) 50 ML IVPB ONE (04:30)
[2017-06-15 06:54] LABS: BASOPHILS % 0.2 % (0.0-2.0); EOSINOPHILS # 0.1 10^3/ul (0.0-0.5); EOSINOPHILS % 1.2 % (0.0-7.0); HEMATOCRIT 37.1 % (37.0-47.0); HEMOGLOBIN 11.8 g/dl (12.0-16.0); LYMPHOCYTES # 1.3 10^3/ul (0.8-2.9); LYMPHOCYTES % 15.7 % (15.0-51.0); MEAN CORPUSCULAR HEMOGLOBIN 27.3 pg (29.0-33.0); MEAN CORPUSCULAR HGB CONC 31.8 g/dl (32.0-37.0); MEAN CORPUSCULAR VOLUME 85.7 fl (82.0-101.0); MEAN PLATELET VOLUME 11.5 fl (7.4-10.4); MONOCYTE # 0.4 10^3/ul (0.3-0.9); MONOCYTES % 4.8 % (0.0-11.0); NEUTROPHILS % 77.7 % (39.0-77.0); PLATELET COUNT 202 10^3/UL (140-415); RED BLOOD COUNT 4.33 10^6/ul (4.20-5.40); RED CELL DISTRIBUTION WIDTH 13.4 % (11.5-14.5); WHITE BLOOD COUNT 8.3 10^3/ul (4.8-10.8)
--- NOTE | 2017-06-15 07:17 | HPN ---
Date/Time of Note Date/Time of Note DATE: 06/15/17 TIME: 07:17 Interval H&P Admission Note Pt. seen H&P reviewed: No system changes AJAY MULLINS MD Jun 15, 2017 07:17
[2017-06-15] MEDS ORDERED: HEPARIN 1000 UNITS/ML 10 ML INJ ONE ×2 (07:26→08:02)
[2017-06-15 07:29] LABS: INR 1.02; PARTIAL THROMBOPLASTIN TIME 28.2 Sec (25.0-35.0); PROTIME 13.4 Sec (12.2-14.2)
[2017-06-15 07:34] LABS: CALCIUM 9.1 mg/dl (8.4-10.2); CREATININE 0.69 mg/dl (0.44-1.00); MAGNESIUM 1.6 mg/dl (1.7-2.5); PHOSPHORUS 3.7 mg/dl (2.5-4.9); POTASSIUM 3.8 mmol/L (3.5-5.1)
[2017-06-15] MEDS ORDERED: metFORMIN 500 MG TAB PO SCH (07:35)
[2017-06-15] MEDS: GLIMEPIRIDE 2 MG TAB PO SCH (07:35)
[2017-06-15] MEDS: INSULIN ASPART [NOVOLOG] 3 ML PEN SC SCH (07:35)
[2017-06-15] MEDS ORDERED: MIDAZOLAM 5 ML ONE (07:56)
[2017-06-15] MEDS ORDERED: INSULIN HUMAN REGULAR 100 UNIT in SOD CHLORIDE 0.9% 99 ML IVPB ONE (08:00)
[2017-06-15] MEDS ORDERED: HEPARIN (10000 UNITS/ML) 10,000 UNIT, MILRINONE LACTATE 10 MG in SOD CHLORIDE 0.9% 1,00... SC ONE (08:00)
[2017-06-15] MEDS ORDERED: EPINEPHrine 4 MG in DEXTROSE 5% 246 ML IV ONE (08:00)
[2017-06-15] MEDS ORDERED: MILRINONE LACTATE 2 MG in SOD CHLORIDE 0.9% 50 ML IV ONE (08:00)
[2017-06-15] MEDS ORDERED: NORepinephrine 8MG/250 ML (PMX 250 ML IV ONE (08:00)
[2017-06-15] MEDS ORDERED: ASPIRIN 600 MG SUPP PR ONE (08:00)
[2017-06-15] MEDS ORDERED: PHENYLephrine 20MG IN 250 ML 250 ML IV ONE (08:00)
[2017-06-15] MEDS ORDERED: ALBUMIN HUMAN 25% 0 ML ONE (08:01)
[2017-06-15] MEDS ORDERED: CA CHLORIDE 10% 10 ML SYRINGE ONE (08:01)
[2017-06-15] MEDS ORDERED: AMINOCAPROIC ACID 5 GM INJ ONE (08:01)
[2017-06-15] MEDS ORDERED: POTASSIUM CHLORIDE 40 MEQ INJ ONE ×2 (08:02→08:04)
--- NOTE | 2017-06-15 08:02 | PN ---
DATE: 06/15/2017 SUBJECTIVE DATA: Patient is stable. The patient is pending a CABG this morning. No other events noted vitals. OBJECTIVE DATA: VITAL SIGNS: Blood pressure is 117/58, respirations 17, pulse 81, temperature 98.2. HEENT: Head is normocephalic. NECK: Supple. HEART: Regular rate. LUNGS: Show diminished breath sounds at the base. ABDOMEN: Soft, nontender to palpation. No rebound or guarding. EXTREMITIES: Negative for clubbing, cyanosis. No edema. DERMATOLOGIC: Clean. No rashes. MUSCULOSKELETAL: No joint effusion. NEUROLOGIC: No change in exam. MEDICATIONS: Reviewed. LABORATORY AND DIAGNOSTIC DATA: Reviewed. ASSESSMENT AND PLAN: 1. Coronary artery disease. The patient is pending coronary artery bypass graft this morning. We will continue current treatment plan. Follow up with Surgery. 2. Acute respiratory distress secondary to chronic obstructive pulmonary disease exacerbation. Continue nebulizers. Appreciate Pulmonary's evaluation. 3. Hyponatremia, improved. 4. Diabetes. Continue Accu-Cheks, insulin sliding scale. 5. History of cerebrovascular accident. Continue medical management. 6. Left ventricle thrombus. Follow up with Cardiology. Follow up repeat echo. 7. Gastrointestinal and deep venous thrombosis prophylaxis. Continue proton pump inhibitor and sequential compression devices. 8. History of tobacco abuse. Dictated By: Chad Apodaca DO /armen/kenn /Document#: [id number]
[2017-06-15] MEDS ORDERED: MAGNESIUM SULFATE (MG) 50% 10 ML INJ ONE (08:03)
[2017-06-15] MEDS ORDERED: LIDOCAINE 100 MG SYRINGE ONE (08:03)
[2017-06-15] MEDS ORDERED: MANNITOL 25% 0 ML ONE (08:04)
[2017-06-15] MEDS ORDERED: PHENYLephrine (100 MCG/ML) 5ML SYG ONE (08:05)
[2017-06-15] MEDS ORDERED: PHENYLephrine 10 MG INJ ONE (08:05)
[2017-06-15] MEDS ORDERED: NA BICARBONATE 8.4% 50 ML SYG ONE (08:06)
[2017-06-15] MEDS: DIPYRIDAMOLE/ASPIRIN (SR) CAP PO SCH (09:00)
[2017-06-15] MEDS: ISOSORBIDE DINITRATE 5 MG TAB PO SCH (09:00)
[2017-06-15] MEDS: MONTELUKAST 10 MG TAB PO SCH (09:00)
[2017-06-15] MEDS: MOXIFLOXACIN 0.5% 3 ML OPH RIGHT EYE SCH (09:00)
[2017-06-15] MEDS: AZITHROMYCIN 250 MG TAB PO SCH (09:00)
--- NOTE | 2017-06-15 10:59 | CONS ---
Date/Time of Note Date/Time of Note DATE: 06/15/17 TIME: 10:57 Consult Date/Type/Reason Admit Date/Time Jun 13, 2017 at 19:48 Initial Consult Date 06/13/17 Type of Consultation: Pulmonary Ordering Provider: USHA ANDERSON DO Subjective Patient stable this morning. Denies any chest pain or shortness of breath. Surgery is currently pending. Objective Vital Signs Date Time Temp Pulse Resp B/P Pulse Ox O2 Delivery O2 Flow Rate FiO2 06/15/17 10:00 90 19 105/54 93 06/15/17 09:00 Nasal Cannula 2.0 06/15/17 07:30 97.7 06/15/17 02:53 27 Intake and Output 06/14/17 06/14/17 06/15/17 15:00 23:00 07:00 Intake Total 50 ml 120 ml 50 ml Output Total 0 ml 550 ml 250 ml Balance 50 ml -430 ml -200 ml Exam PHYSICAL EXAMINATION: GENERAL APPEARANCE: Well-nourished, well-developed lady talking in full and complete sentences. VITAL SIGNS: NECK: Supple. No JVD. No lymphadenopathy. HEART: S1, S2. No added sounds or murmurs. CHEST: Diminished air entry bilaterally. ABDOMEN: Soft, nontender. No guarding or rebound. EXTREMITIES: No clubbing, cyanosis or edema. NEUROLOGICALLY: Generalized weakness. Results/Medications Result Diagram: 06/15/17 0620 06/15/17 0620 Results 24 hrs Laboratory Tests Test 06/14/17 14:34 06/14/17 17:14 06/14/17 21:55 06/15/17 02:05 Bedside Glucose 180 115 173 170 Test 06/15/17 06:20 06/15/17 07:42 White Blood Count 8.3 Red Blood Count 4.33 Hemoglobin 11.8 L Hematocrit 37.1 Mean Corpuscular Volume 85.7 Mean Corpuscular Hemoglobin 27.3 L Mean Corpuscular Hemoglobin Concent 31.8 L Red Cell Distribution Width 13.4 Platelet Count 202 Mean Platelet Volume 11.5 H Neutrophils % 77.7 H Lymphocytes % 15.7 Monocytes % 4.8 Eosinophils % 1.2 Basophils % 0.2 Nucleated Red Blood Cells % 0.0 Neutrophils # (Manual) 6.4 Lymphocytes # 1.3 Monocytes # 0.4 Eosinophils # 0.1 Basophils # 0.0 Nucleated Red Blood Cells # 0.0 Prothrombin Time 13.4 Prothrombin Time Ratio 1.0 INR International Normalized Ratio 1.02 Activated Partial Thromboplast Time 28.2 Sodium Level 139 Potassium Level 3.8 Chloride Level 104 Carbon Dioxide Level 28 Anion Gap 11 # Blood Urea Nitrogen 17 Creatinine 0.69 Glucose Level 147 Calcium Level 9.1 Phosphorus Level 3.7 Magnesium Level 1.6 L Bedside Glucose 158 Medications Current Medications Acetaminophen (Tylenol Tab) 650 mg Q4H PRN PO NON-CARDIAC PAIN LEVEL (1-3); Start 06/13/17 at 10:00 Ondansetron HCl (Zofran Inj) 4 mg Q4H PRN IV NAUSEA AND/OR VOMITING; Start at 10:00 Dipyridamole/ Aspirin (Aggrenox) 1 cap BID PO Last administered on 06/14/17 21 :47; Admin Dose 1 CAP; Start 06/13/17 at 21:00 Atorvastatin Calcium (Lipitor) 20 mg QHS PO Last administered on 06/14/17 21: 49; Admin Dose 20 MG; Start 06/13/17 at 21:00 Azithromycin (Zithromax) 250 mg DAILY PO Last administered on 06/14/17 08:46; Admin Dose 250 MG; Start 06/14/17 at 09:00 Gabapentin (Neurontin) 300 mg QHS PO Last administered on 06/14/17 21:47; Admin Dose 300 MG; Start 06/13/17 at 21:00 Isosorbide Dinitrate (Isordil) 5 mg TID PO Last administered on 06/14/17 21:48 ; Admin Dose 5 MG; Start 06/13/17 at 21:00 Meclizine HCl (Antivert) 25 mg Q8H PRN PO DIZZINESS Last administered on 21:17; Admin Dose 25 MG; Start 06/13/17 at 16:30 Montelukast Sodium (Singulair) 10 mg DAILY PO Last administered on 06/14/17 08 :45; Admin Dose 10 MG; Start 06/14/17 at 09:00 Moxifloxacin HCl (Vigamox) 1 drop TID RIGHT EYE Last administered on 06/14/17 21:48; Admin Dose 1 DROP; Start 06/13/17 at 21:00 Pseudoephedrine HCl (Sudogest) 30 mg Q6 PRN PO CONGESTION; Start 06/13/17 at 16 :30 Tramadol HCl (Ultram) 50 mg Q6 PRN PO PAIN; Start 06/13/17 at 16:30 Diagnostic Test (Pha) (Accu-Chek) 1 ea 02 XX Last administered on 06/15/17 02: 00; Admin Dose 1 EA; Start 06/14/17 at 02:00 Miscellaneous Information 1 ea NOTE XX ; Start 06/13/17 at 17:00 Glucose (Glutose) 15 gm Q15M PRN PO DECREASED GLUCOSE; Start 06/13/17 at 17:00 Glucose (Glutose) 22.5 gm Q15M PRN PO DECREASED GLUCOSE; Start 06/13/17 at 17: 00 Dextrose (D50w Syringe) 25 ml Q15M PRN IV DECREASED GLUCOSE; Start 06/13/17 at 17:00 Dextrose (D50w Syringe) 50 ml Q15M PRN IV DECREASED GLUCOSE; Start 06/13/17 at 17:00 Glucagon (Glucagen) 1 mg Q15M PRN IM DECREASED GLUCOSE; Start 06/13/17 at 17:00 Glucose (Glutose) 15 gm Q15M PRN BUCCAL DECREASED GLUCOSE; Start 06/13/17 at 17 :00 Morphine Sulfate (morphine) 2 mg Q4H PRN IV PAIN LEVEL 4-6 Last administered on 06/14/17 21:48; Admin Dose 2 MG; Start 06/13/17 at 18:00 Carvedilol (Coreg) 6.25 mg BID PO Last administered on 06/14/17 21:47; Admin Dose 6.25 MG; Start 06/14/17 at 21:00 Clonidine (Catapres) 0.1 mg Q8 PRN PO SBP>160; Start 06/14/17 at 10:30 Assessment/Plan Chief Complaint/Hosp Course IMPRESSION AND PLAN: 1. Severe chronic obstructive pulmonary disease with coronary artery disease. 2. Significant carotid stenosis. 3. History of cardiomyopathy. PLAN: 1. Continue supplemental O2 as needed. 2. Advised smoking cessation. 3. Bronchodilators preoperatively. 4. Vascular and cardiothoracic surgery recommendations regarding carotid stenosis. Patient scheduled for surgery today. Surgery will likely be performed at [facility] as we are currently experiencing problems with operating rooms. Problems: SHIV TERRELL MD, [facility] Jun 15, 2017 10:58
--- NOTE | 2017-06-15 20:20 | DS ---
DATE OF ADMISSION: 06/13/2017 DATE OF DISCHARGE: 06/15/2017 ADMISSION DIAGNOSIS: Coronary artery disease. DISCHARGE DIAGNOSIS: Coronary artery disease. BRIEF HISTORY/HOSPITAL COURSE: The patient is a 62-izvon-cek female who was admitted for angina who underwent a PCI and was found to have total occlusion of her LAD, and a high-grade lesion of her right coronary artery. She was transferred to the ICU and Cardiothoracic Surgery was consulted for a urgent CABG. The patient was evaluated and felt to be a candidate for coronary revascularization. Her carotid ultrasound showed a total occluded left internal carotid artery which was confirmed by CT angiogram. Her echocardiogram showed an ejection fraction about 40%. She was scheduled for surgery at [facility], because of operating room technical issues they were not able to accommodate her over the weekend and she needs to be transferred to another facility for urgent CABG. The patient will be transferred and undergo coronary revascularization at [facility]. She will continue all of her medications that she was on here, and this includes Coreg, clonidine, Zithromax, aspirin, Neurontin, atorvastatin, isosorbide dinitrate, Vigamox, morphine p.r.n., Amaryl. Dictated By: Mckenna Obando MD /armen/[place] /Document#: [id number] CC: Mckenna Obando MD;*[facility]*
== END 2017-06-15 13:42 | disposition short-term general hospital (02) | DRG 251 ==
LOC: SDS 05:44 → ICU 09:50 → SDS 19:48
PROVIDERS: ADMIT Internal Medicine Interventional Cardiology; ATTEND Internal Medicine Interventional Cardiology
PROC: 02703ZZ Dilation of Coronary Artery, One Artery, Percutaneous Approach (ICD-10-PCS; principal; 2017-06-13 07:30)
PROC: B2111ZZ Fluoroscopy of Multiple Coronary Arteries using Low Osmolar Contrast (ICD-10-PCS; 2017-06-13 07:30)
DX: I25.119 Atherosclerotic heart disease of native coronary artery with unspecified angina pectoris (principal); I24.0 Acute coronary thrombosis not resulting in myocardial infarction; E11.51 Type 2 diabetes mellitus with diabetic peripheral angiopathy without gangrene; J44.1 Chronic obstructive pulmonary disease with (acute) exacerbation; E87.1 Hypo-osmolality and hyponatremia; Z86.73 Personal history of transient ischemic attack (TIA), and cerebral infarction without residual deficits; I73.9 Peripheral vascular disease, unspecified; F17.200 Nicotine dependence, unspecified, uncomplicated; I25.5 Ischemic cardiomyopathy; I10 Essential (primary) hypertension; I65.29 Occlusion and stenosis of unspecified carotid artery
CPT/HCPCS: 70498; 71010; 80048; 82962; 83735; 84100; 85025; 85610; 85730; 86850; 86900; 86901; 86920; 87081; 92920; 93005; 93306; 93454; 93880; 94010; 94664; C1725; C1769; C1887; J0171; J0583; J0690; J1644; J1815; J1940; J2001; J2150; J2250; J2260; J2270; J2370; J2405; J3010; J3475; J3480; J7030; J7040; J7070; P9047; Q9967